=== PATIENT | male | born 1985 | race African-American/Black ===

== ENCOUNTER 2017-04-02 01:25 | Emergency (ER) | payer OTHER ==
[~2017-04-02] VITALS: Ht 180.3 cm; Wt 90.7 kg
[~2017-04-02 01:25] MED LIST: FLEXERIL PO; HYDROCODONE-ACE15 ML PO; IBUPROFEN 600600 M1 PO; NAPROSYN500 MG PO; NOHOMEMEDICATIONS; TORADOL 10 MG T10 MG PO; TRAMADOL 50 MG50 MG PO
[2017-04-02] MEDS ORDERED: PENICILLIN V P500 MG PO (01:59)
[2017-04-02] MEDS ORDERED: TRAMADOL 50 MG50 MG PO (01:59)
[2017-04-02] MEDS ORDERED: NAPROSYN500 MG PO (01:59)
[2017-04-02 02:37] VITALS: BP 147/109
== END 2017-04-02 02:42 | disposition home or self-care (01) ==
LOC: ER 01:25
DX: K08.89 Other specified disorders of teeth and supporting structures (principal); F17.210 Nicotine dependence, cigarettes, uncomplicated

== ENCOUNTER 2017-10-19 17:35 | Emergency (ER) | payer OTHER ==
[~2017-10-19] VITALS: Ht 180.3 cm; Wt 90.7 kg
[~2017-10-19 17:35] MED LIST changes: +PENICILLIN V P500 MG PO
[2017-10-19] MEDS ORDERED: PROMETHAZINE/C118 ML PO (18:53)
[2017-10-19] MEDS ORDERED: PROVENTIL HFA6.7 G1 INH (18:53)
[2017-10-19 19:37] VITALS: BP 135/84
== END 2017-10-19 19:37 | disposition home or self-care (01) ==
LOC: ER 17:35
DX: J40 Bronchitis, not specified as acute or chronic (principal); F17.210 Nicotine dependence, cigarettes, uncomplicated

== ENCOUNTER 2019-03-06 07:00 | Emergency (ER) | payer BC ==
[~2019-03-06] VITALS: Ht 175.3 cm; Wt 99.8 kg
[~2019-03-06 07:00] MED LIST changes: +PROMETHAZINE/C118 ML PO; +PROVENTIL HFA6.7 G1 INH
[2019-03-06 07:03] VITALS: BP 140/80
== END 2019-03-06 08:00 | disposition home or self-care (01) ==
LOC: ER 07:00
DX: H00.014 Hordeolum externum left upper eyelid (principal); F17.210 Nicotine dependence, cigarettes, uncomplicated